=== PATIENT | male | born 1975 | race Two or more races ===

== ENCOUNTER → 2019-12-07 | Emergency (ER) | payer OTHER ==
[~2019-12-07] VITALS: Ht 182.9 cm; Wt 84.8 kg
[~2019-12-07] MED LIST: TETANUS-DIPTH-ACEL PERTUSSIS 0.5ML SYR Tdap IM ONE
[2019-12-07 12:31] VITALS: BP 161/95
== END | disposition home or self-care (01) ==
LOC: ER 11:50
DX: S51.812A Laceration without foreign body of left forearm, initial encounter (principal); F17.210 Nicotine dependence, cigarettes, uncomplicated; W26.0XXA Contact with knife, initial encounter; Y92.89 Other specified places as the place of occurrence of the external cause; Y93.89 Activity, other specified; Y99.8 Other external cause status
CPT/HCPCS: 12001; 90471; 90715